=== PATIENT | female | born 1950 | race Caucasian/White ===

== ENCOUNTER → 2024-07-02 17:38 | Outpatient (REF) | payer MEDICARE, SELFPAY | LOC: WDC 17:38 | PROVIDERS: ATTENDING PHYSICIAN Emergency Medicine | DX: Z12.31 Encounter for screening mammogram for malignant neoplasm of breast (principal) | CPT/HCPCS: 77063; 77067 ==

== ENCOUNTER → 2025-02-07 07:47 | Outpatient (REF) | payer MEDICARE, SELFPAY | LOC: HWRAD 07:47 | PROVIDERS: ATTENDING PHYSICIAN Emergency Medicine | DX: Z13.820 Encounter for screening for osteoporosis (principal); Z78.0 Asymptomatic menopausal state | CPT/HCPCS: 77080 ==

== ENCOUNTER → 2025-07-03 14:20 | Outpatient (REF) | payer MEDICARE, SELFPAY | LOC: WDC 14:20 | PROVIDERS: ATTENDING PHYSICIAN Family Medicine | DX: Z12.31 Encounter for screening mammogram for malignant neoplasm of breast (principal) | CPT/HCPCS: 77063; 77067 ==